=== PATIENT | male | born 1955 | race Caucasian/White ===

== ENCOUNTER 2018-11-13 13:50 | Outpatient (CLI) | payer OTHER | END 2018-11-13 14:47 | disposition home or self-care (01) | LOC: LAB 13:50 | DX: N39.0 Urinary tract infection, site not specified (principal); B96.1 Klebsiella pneumoniae [K. pneumoniae] as the cause of diseases classified elsewhere ==

== ENCOUNTER 2019-01-29 09:29 | Outpatient (CLI) | payer OTHER | END 2019-01-29 10:46 | disposition home or self-care (01) | LOC: EKG 09:29 | DX: K40.90 Unilateral inguinal hernia, without obstruction or gangrene, not specified as recurrent (principal); Z01.812 Encounter for preprocedural laboratory examination; Z01.810 Encounter for preprocedural cardiovascular examination ==

== ENCOUNTER 2019-04-16 12:11 | Outpatient (CLI) | payer OTHER ==
[~2019-04-16 12:11] MED LIST: ASA81 MG PO; ENALAPRIL MALEA20 MG PO; LIPITOR20 MG PO; SINEMET 25-1001 EACH PO; TOPROL XL25 MG PO; ZOLOFT25 MG PO
[2019-04-20] MEDS ORDERED: SURFAK240 M1 PO (12:58)
[2019-04-20] MEDS ORDERED: ULTRACET PO (12:58)
== END 2019-04-16 13:30 | disposition home or self-care (01) ==
LOC: EKG 12:11
DX: I10 Essential (primary) hypertension (principal); Z01.810 Encounter for preprocedural cardiovascular examination

== ENCOUNTER → 2019-04-20 | Day surgery (SDC) | payer OTHER ==
[~2019-04-20] MED LIST changes: +SURFAK240 M1 PO; +ULTRACET PO
== END | disposition home or self-care (01) ==
LOC: ADM 04-15 08:00 → CIR.AMB 06:34
DX: K40.90 Unilateral inguinal hernia, without obstruction or gangrene, not specified as recurrent (principal)